=== PATIENT | female | born 1995 | race Caucasian/White ===

== ENCOUNTER → 2017-12-07 | Outpatient (CLI) | payer MEDICAID ==
[~2017-12-07] MED LIST: BIRTH CONTROL PO; MOTRIN 600600 MG/TAB PO; NO HOME MEDICATIONS; ZOFRAN 4MG T4 MG/TAB PO
== END ==
LOC: SUN.DIA 14:01
DX: O24.419 Gestational diabetes mellitus in pregnancy, unspecified control (principal); Z3A.20 20 weeks gestation of pregnancy; Z71.3 Dietary counseling and surveillance; Z87.891 Personal history of nicotine dependence
CPT/HCPCS: G0108

== ENCOUNTER → 2017-12-14 | Outpatient (CLI) | payer MEDICAID | LOC: SUN.DIA 09:26 | DX: O24.419 Gestational diabetes mellitus in pregnancy, unspecified control (principal); Z3A.21 21 weeks gestation of pregnancy; Z71.3 Dietary counseling and surveillance; Z87.891 Personal history of nicotine dependence | CPT/HCPCS: G0108 ==

== ENCOUNTER → 2018-01-03 | Outpatient (CLI) | payer MEDICAID | LOC: SUN.DIA 12-28 11:03 | DX: O24.419 Gestational diabetes mellitus in pregnancy, unspecified control (principal); Z3A.24 24 weeks gestation of pregnancy; Z71.3 Dietary counseling and surveillance; Z87.891 Personal history of nicotine dependence | CPT/HCPCS: G0108 ==

== ENCOUNTER → 2018-01-24 | Outpatient (CLI) | payer MEDICAID ==
[~2018-01-24] MED LIST changes: +PRENATAL1 TA7 PO
== END ==
LOC: SUN.DIA 01-19 10:17
DX: O24.419 Gestational diabetes mellitus in pregnancy, unspecified control (principal); Z3A.27 27 weeks gestation of pregnancy; Z71.3 Dietary counseling and surveillance; Z87.891 Personal history of nicotine dependence
CPT/HCPCS: G0108

== ENCOUNTER 2018-01-30 18:52 | Outpatient (CLI) | payer MEDICAID ==
[~2018-01-30] VITALS: Ht 157.5 cm; Wt 88.2 kg
[~2018-01-30 18:52] MED LIST changes: -PRENATAL1 TA7 PO
[2018-01-30 19:10] VITALS: BP 123/73; PULSE 104; TEMP 98.1
[2018-01-30] MEDS ORDERED: PRENATAL1 TA7 PO (19:30)
== END 2018-01-30 20:30 | disposition home or self-care (01) ==
LOC: LDRO 18:52
DX: O36.8120 Decreased fetal movements, second trimester, not applicable or unspecified (principal); O99.89 Other specified diseases and conditions complicating pregnancy, childbirth and the puerperium; M54.9 Dorsalgia, unspecified; Z3A.27 27 weeks gestation of pregnancy

== ENCOUNTER 2018-04-06 18:52 | Outpatient (CLI) | payer MEDICAID ==
[~2018-04-06] VITALS: Ht 157.5 cm; Wt 90.0 kg
[~2018-04-06 18:52] MED LIST changes: +PRENATAL1 TA7 PO
[2018-04-06 19:30] VITALS: BP 111/64; PULSE 81; TEMP 97.2
[2018-04-06 20:21] VITALS: BP 107/64; PULSE 101
== END 2018-04-06 20:20 | disposition home or self-care (01) ==
LOC: LDRO 18:52
DX: O99.89 Other specified diseases and conditions complicating pregnancy, childbirth and the puerperium (principal); M54.9 Dorsalgia, unspecified; Z3A.36 36 weeks gestation of pregnancy

== ENCOUNTER 2018-04-15 15:38 | Outpatient (CLI) | payer MEDICAID ==
[~2018-04-15] VITALS: Ht 154.9 cm; Wt 90.9 kg
[2018-04-15 15:54] VITALS: BP 124/74; PULSE 78; TEMP 97.9
== END 2018-04-15 16:40 | disposition home or self-care (01) ==
LOC: LDRO 15:38
DX: O99.89 Other specified diseases and conditions complicating pregnancy, childbirth and the puerperium (principal); Z3A.37 37 weeks gestation of pregnancy

== ENCOUNTER 2018-04-23 06:47 | Inpatient (IN) | payer MEDICAID ==
[2018-04-23] VITALS (66 sets, daily range): BP systolic 99–143; BP diastolic 50–81; PULSE 67–117; TEMP 97.7–99.2
[~2018-04-23] VITALS: Ht 154.9 cm; Wt 90.5 kg
[2018-04-23 07:21] LABS: BASO % 0.3 % (0.0-2.0); EOS # 0.2 (0.0-0.7); EOS % 3.2 % (0-4.0); GRAN # 4.9 (1.4-6.5); GRAN % 67.5 % (42.2-75.2); HEMATOCRIT 31.7 % (37.0-47.0); HEMOGLOBIN 10.5 g/dl (12.5-16.0); LYMPH # 1.6 (1.2-3.4); LYMPH % 21.8 % (20.0-51.0); MEAN CELL VOLUME 88 fl (80.0-100.0); MEAN CORPUSCULAR HEMOGLOBIN 29 pg (27.0-31.0); MEAN CORPUSCULAR HGB CONC 33 g/dl (33.0-37.0); MONO # 0.5 (0.1-0.6); MONO % 6.5 % (1.7-9.3); PLATELET COUNT 204 K/mm3 (130-400); RED BLOOD COUNT 3.62 M/mm3 (4.10-5.30); REDCELL DISTRIBUTION WIDTH-CV 13.7 % (11.5-14.5)
[2018-04-23] MEDS ORDERED: CLARITIN 1010 MG/TAB (07:23)
[2018-04-24] VITALS (13 sets, daily range): BP systolic 98–129; BP diastolic 55–76; PULSE 70–97; TEMP 97.3–98.7
[2018-04-24] MEDS ORDERED: IBU600 MG PO (17:58)
== END 2018-04-25 01:45 | disposition home or self-care (01) | DRG 775 ==
LOC: OB 06:47 → LDR 06:47 → OB 04-24 03:40
PROVIDERS: Obstetrics & Gynecology
PROC: 10E0XZZ Delivery of Products of Conception, External Approach (ICD-10-PCS; principal; 2018-04-24)
PROC: 3E033VJ Introduction of Other Hormone into Peripheral Vein, Percutaneous Approach (ICD-10-PCS; 2018-04-24)
PROC: 10907ZC Drainage of Amniotic Fluid, Therapeutic from Products of Conception, Via Natural or Artificial Opening (ICD-10-PCS; 2018-04-24)
DX: O24.420 Gestational diabetes mellitus in childbirth, diet controlled (principal); O43.123 Velamentous insertion of umbilical cord, third trimester; Z3A.39 39 weeks gestation of pregnancy; Z37.0 Single live birth; O99.02 Anemia complicating childbirth
CPT/HCPCS: J2405; J2590; J2795; J7120

== ENCOUNTER 2020-06-21 09:55 | Emergency (ER) | payer SELFPAY ==
[~2020-06-21] VITALS: Ht 154.9 cm; Wt 86.4 kg
[~2020-06-21 09:55] MED LIST changes: +CLARITIN 1010 MG/TAB; +IBU600 MG PO
[2020-06-21 10:00] VITALS: BP 122/72; TEMP 97
[2020-06-21 10:46] LABS: BASO % 0.3 % (0.0-2.0); EOS # 0.3 (0.0-0.7); EOS % 3.1 % (0-4.0); GRAN # 7.2 (1.4-6.5); GRAN % 80.1 % (42.2-75.2); HEMATOCRIT 41.1 % (37.0-47.0); HEMOGLOBIN 13.7 g/dl (12.5-16.0); MEAN CELL VOLUME 94 fl (80.0-100.0); MEAN CORPUSCULAR HEMOGLOBIN 31 pg (27.0-31.0); MEAN CORPUSCULAR HGB CONC 33 g/dl (33.0-37.0); MEAN PLATELET VOLUME 9.2 fl (7.4-10.4); MONO # 0.5 (0.1-0.6); MONO % 5.2 % (1.7-9.3); PLATELET COUNT 207 K/mm3 (130-400); RED BLOOD COUNT 4.39 M/mm3 (4.10-5.30); REDCELL DISTRIBUTION WIDTH-CV 11.6 % (11.5-14.5)
[2020-06-21 10:56] LABS: ALBUMIN 4.5 gm/dL (3.5-5.0); BILIRUBIN,TOTAL 0.9 mg/dL (0.0-1.0); C-REACTIVE PROTEIN 2.7 mg/dL (0.0-0.9); CREATININE, serum 0.58 (0.52-1.25); POTASSIUM 4.3 mmol/L (3.4-5.0); TOTAL PROTEIN 7.4 gm/dL (6.4-8.2)
[2020-06-21 11:37] LABS: COLLECTION METHOD CLEAN CATCH
[2020-06-21 11:57] LABS: PH 7 (5-8); SQUAMOUS EPITHELIAL 0-2 /hpf; URINE APPEARANCE Clear; URINE BACTERIA Rare /hpf; URINE BILIRUBIN Negative (NEGATIVE); URINE BLOOD Negative (NEGATIVE); URINE COLOR Straw; URINE GLUCOSE Negative (NEGATIVE); URINE KETONE Negative (NEGATIVE); URINE LEUKOCYTE ESTERASE Trace (NEGATIVE); URINE NITRATE Negative (NEGATIVE); URINE PROTEIN(semi-quant) Negative (NEGATIVE); URINE RBC 0-2 /hpf; URINE UROBILINOGEN Negative (NEGATIVE)
[2020-06-21] MEDS ORDERED: OMNICEF 300MG300 MG PO (12:08)
[2020-06-21] MEDS ORDERED: DOXYCYCLINE 10100 MG PO (12:09)
[2020-06-21] MEDS ORDERED: ZOVIRAX400 MG PO (12:19)
[2020-06-21 12:57] VITALS: PULSE 99
== END 2020-06-21 12:57 | disposition home or self-care (01) ==
LOC: COL.ER 09:55
PROVIDERS: Emergency Medicine
DX: N76.0 Acute vaginitis (principal); Z32.02 Encounter for pregnancy test, result negative
CPT/HCPCS: J0696; J1885